=== PATIENT | male | born 1955 | race Caucasian/White ===

== ENCOUNTER 2019-04-19 19:07 | Emergency (ER) | payer SELFPAY ==
[~2019-04-19] VITALS: Ht 165.1 cm; Wt 76.2 kg
[~2019-04-19 19:07] MED LIST: ACET-1467 PO; BENA1TAB18 PO; CLOP75TA15 PO; LORA1TAB PO; PROP10TA10 PO
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
[2019-04-19] MEDS ORDERED: HYDROCODONE/APAP 5-325MG TABLET PO ONE (19:15)
[2019-04-19] MEDS ORDERED: HYDROCODONE/APAP 5-325MG TABLET ONE (19:24)
--- NOTE | 2019-04-19 19:37 | NUR ---
Patient discharged to home in stable conditon, DENIES PAIN. Written and verbal after care instructions given. AMBULATORY WITH STABLE GAIT. Patient verbalizes understanding of instructions.
[2019-04-19 19:42] VITALS: BP 140/90
== END 2019-04-19 19:30 | disposition home or self-care (01) ==
LOC: ER 19:07
DX: S00.03XA Contusion of scalp, initial encounter (principal); I10 Essential (primary) hypertension; E78.00 Pure hypercholesterolemia, unspecified; F41.9 Anxiety disorder, unspecified; Z79.01 Long term (current) use of anticoagulants; Z79.899 Other long term (current) drug therapy; Z86.73 Personal history of transient ischemic attack (TIA), and cerebral infarction without residual deficits; V43.52XA Car driver injured in collision with other type car in traffic accident, initial encounter; Y93.89 Activity, other specified; Y92.410 Unspecified street and highway as the place of occurrence of the external cause; Y99.8 Other external cause status
CPT/HCPCS: A4663

== ENCOUNTER 2019-07-08 19:40 | Inpatient (IN) | payer MEDICARE ==
[~2019-07-08] VITALS: Ht 170.2 cm; Wt 75.0 kg
[2019-07-08 20:09] LABS: BASOPHILS # (AUTO) 0.1 K/uL (0.0-8.0); EOSINOPHILS # (AUTO) 0.4 K/uL (0.0-0.7); HEMATOCRIT 45.6 % (36.7-47.1); HEMOGLOBIN 15.2 g/dL (12.5-16.3); LYMPHOCYTES # (AUTO) 3.1 K/uL (20.0-40.0); LYMPHOCYTES % (AUTO) 33.6 % (20.5-51.5); MEAN CORPUSCULAR HEMOGLOBIN 27.9 uug (23.8-33.4); MEAN CORPUSCULAR HGB CONC 33 g/dL (32.5-36.3); MEAN CORPUSCULAR VOLUME 83.7 fL (73.0-96.2); MONOCYTES # (AUTO) 0.6 K/uL (2.0-10.0); MONOCYTES % (AUTO) 6.1 % (0.0-11.0); NEUTROPHILS # (AUTO) 5.1 K/uL (1.8-8.9); NEUTROPHILS % (AUTO) 55.3 % (38.5-71.5); PLATELET COUNT (AUTO) 224 K/uL (152-348); RED BLOOD CELL COUNT(AUTO) 5.45 MIL/uL (4.06-5.63); WHITE BLOOD COUNT (AUTO) 9.2 K/uL (3.6-10.2)
[2019-07-08 20:47] LABS: ALANINE AMINOTRANSFERASE 29 U/L (16-63); ALKALINE PHOSPHATASE 62 U/L (50-136); ASPARTATE AMINOTRANSFERASE 13 U/L (15-37); BILIRUBIN,DIRECT < 0.1 mg/dL (0.0-0.2); BILIRUBIN,TOTAL 0.4 mg/dL (0.2-1.0); CARBON DIOXIDE 24 mmol/L (21-32); CHLORIDE 103 mmol/L (98-107); CHOLESTEROL 178 mg/dL (<200); CREATININE 0.9 mg/dL (0.6-1.3); GLUCOSE 109 mg/dL (74-106); HDL CHOLESTEROL 42 mg/dL (40-60); POTASSIUM 3.9 mmol/L (3.5-5.1); TOTAL PROTEIN, SERUM 7.9 g/dL (6.4-8.2); TRIGLYCERIDES 155 MG/DL (30-150); UREA NITROGEN, BLOOD 19 mg/dL (7-18)
[2019-07-08 21:27] LABS: *AMPHETAMINE, URINE NEGATIVE (NEGATIVE); *BARBITURATE, URINE NEGATIVE (NEGATIVE); *CANNABINOID, URINE NEGATIVE (NEGATIVE); *COCCAINE, URINE NEGATIVE (NEGATIVE); *OPIATE, URINE NEGATIVE (NEGATIVE); *PHENCYCLIDINE SCREEN,URINE NEGATIVE (NEGATIVE)
[2019-07-08] MEDS ORDERED: ALPRAZOLAM 0.5 MG TABLET ONE (22:25)
[2019-07-08] MEDS ORDERED: ALPRAZOLAM 0.25 MG TABLET PO ONE (22:30)
[2019-07-09] MEDS ORDERED: IV NS 1000 ML 1,000 ML IV PRN (00:21)
[2019-07-09] MEDS ORDERED: ACETAMINOPHEN 325 MG TABLET PO PRN (00:30)
[2019-07-09] MEDS ORDERED: MAG HYDROX/AL HYDROX/SIMETH 30 ML LIQUID UDC PO PRN (00:30)
[2019-07-09] MEDS ORDERED: hydrALAZINE HCL 20 MG/1 ML VIAL IV PRN (00:30)
[2019-07-09] MEDS ORDERED: ASPIRIN EC 81 MG TABLET.DR PO ONE ×2 (01:15→01:30)
[2019-07-09 01:20] VITALS: BP 141/84
[2019-07-09] MEDS ORDERED: SIMVASTATIN 40 MG TABLET PO ONE (01:30)
[2019-07-09 04:27] VITALS: BP 116/57
[2019-07-09 06:35] LABS: BASOPHILS % (AUTO) 0.6 % (0.0-2.0); EOSINOPHILS # (AUTO) 0.3 K/uL (0.0-0.7); HEMATOCRIT 40.9 % (36.7-47.1); HEMOGLOBIN 13.4 g/dL (12.5-16.3); LYMPHOCYTES # (AUTO) 2.6 K/uL (20.0-40.0); LYMPHOCYTES % (AUTO) 36.9 % (20.5-51.5); MEAN CORPUSCULAR HGB CONC 33 g/dL (32.5-36.3); MEAN CORPUSCULAR VOLUME 82.5 fL (73.0-96.2); MONOCYTES # (AUTO) 0.6 K/uL (2.0-10.0); MONOCYTES % (AUTO) 8.5 % (0.0-11.0); NEUTROPHILS # (AUTO) 3.6 K/uL (1.8-8.9); PLATELET COUNT (AUTO) 214 K/uL (152-348); RED BLOOD CELL COUNT(AUTO) 4.96 MIL/uL (4.06-5.63); WHITE BLOOD COUNT (AUTO) 7.1 K/uL (3.6-10.2)
[2019-07-09 06:36] LABS: CREATININE 0.8 mg/dL (0.6-1.3); POTASSIUM 3.5 mmol/L (3.5-5.1)
[2019-07-09 06:41] LABS: BILIRUBIN,TOTAL 0.4 mg/dL (0.2-1.0); TOTAL PROTEIN, SERUM 6.5 g/dL (6.4-8.2)
[2019-07-09] MEDS ORDERED: PANTOPRAZOLE SODIUM 40 MG TABLET.DR PO SCH (07:00)
[2019-07-09 07:44] LABS: THYROID STIMULATING HORMONE 4.027 mIU/mL (0.358-3.740)
[2019-07-09] MEDS: PROPRANOLOL HCL 10 MG TABLET PO SCH ×3 (08:21→17:11)
[2019-07-09] MEDS ORDERED: LORAZEPAM 1 MG TABLET PO SCH (09:00)
[2019-07-09] MEDS ORDERED: CLOPIDOGREL 75 MG TABLET PO SCH (09:00)
[2019-07-09] MEDS ORDERED: ASPIRIN EC 81 MG TABLET.DR PO SCH ×2 (09:00)
[2019-07-09] MEDS ORDERED: BENAZEPRIL HCL 20 MG TABLET PO SCH (10:12)
[2019-07-09] MEDS ORDERED: HYDROCHLOROTHIAZIDE 25 MG TABLET PO SCH (10:12)
[2019-07-09 11:30] VITALS: BP 129/69
[2019-07-09 13:07] LABS: *BILIRUBIN,URIN NEGATIVE (NEGATIVE); *BLOOD, URINE NEGATIVE (NEGATIVE); *COLOR,URINE YELLOW (YELLOW); *KETONES,URINE NEGATIVE (NEGATIVE); *UROBILINOGEN,URINE 0.2 E.U./dl (NORMAL); LEUKOCYTE ESTERASE ,URINE NEGATIVE (NEGATIVE); NITRITE, URINE NEGATIVE (NEGATIVE); UGLUCOSE NEGATIVE (NEGATIVE)
[2019-07-09 13:12] LABS: *CLARITY,URINE CLEAR (CLEAR)
[2019-07-09] MEDS ORDERED: ALPR1TAB7 PO (13:29)
[2019-07-09] MEDS ORDERED: AMLO5TAB4 PO (13:30)
[2019-07-09] MEDS ORDERED: METH500T6 PO (13:30)
[2019-07-09] MEDS ORDERED: ATOR20TA PO (13:31)
[2019-07-09] MEDS ORDERED: PROP20TA7 PO (13:31)
[2019-07-09 16:00] VITALS: BP 141/81
[2019-07-09 17:11] VITALS: BP 144/77
[2019-07-09] MEDS ORDERED: BENA20TA9 PO (17:23)
[2019-07-09] MEDS ORDERED: ATOR40TA PO (17:23)
[2019-07-09] MEDS ORDERED: LORAZEPAM 1 MG TABLET PO PRN (21:00)
[2019-07-09] MEDS ORDERED: SIMVASTATIN 40 MG TABLET PO SCH ×2 (21:00)
== END 2019-07-09 17:55 | disposition home or self-care (01) | DRG 69 ==
LOC: ER 19:41 → TELE3 23:55
PROVIDERS: ADMIT Nurse Practitioner Acute Care; ATTEND Internal Medicine
DX: G45.9 Transient cerebral ischemic attack, unspecified (principal); G25.0 Essential tremor; I67.82 Cerebral ischemia; Z86.73 Personal history of transient ischemic attack (TIA), and cerebral infarction without residual deficits; J44.9 Chronic obstructive pulmonary disease, unspecified; F17.210 Nicotine dependence, cigarettes, uncomplicated; H65.91 Unspecified nonsuppurative otitis media, right ear; Z79.02 Long term (current) use of antithrombotics/antiplatelets; I10 Essential (primary) hypertension; E86.0 Dehydration; E78.5 Hyperlipidemia, unspecified; F32.9 Major depressive disorder, single episode, unspecified; F41.9 Anxiety disorder, unspecified; I73.89 Other specified peripheral vascular diseases; R40.2252 Coma scale, best verbal response, oriented, at arrival to emergency department; R40.2362 Coma scale, best motor response, obeys commands, at arrival to emergency department; R40.2142 Coma scale, eyes open, spontaneous, at arrival to emergency department
CPT/HCPCS: 36415; 70030-TC; 70450; 71045; 80307; 83735; 84443; 85025; 85651; 85730; 93005; A4663; G0378; J7030

== ENCOUNTER 2021-01-30 17:37 | Emergency (ER) | payer MEDICARE, OTHER ==
[~2021-01-30] VITALS: Ht 170.2 cm; Wt 75.7 kg
[~2021-01-30 17:37] MED LIST changes: -ACET-1467 PO; +ALPR1TAB7 PO; +AMLO5TAB4 PO; +ATOR20TA PO; +ATOR40TA PO; -BENA1TAB18 PO; +BENA20TA9 PO; -CLOP75TA15 PO; -LORA1TAB PO; +METH-806 PO; -PROP10TA10 PO; +PROP20TA7 PO
[2021-01-30] MEDS ORDERED: ALPRAZOLAM 0.25 MG TABLET PO ONE (19:30)
[2021-01-30 19:50] LABS: BASOPHILS # (AUTO) 0.1 K/uL (0.0-8.0); BASOPHILS % (AUTO) 0.5 % (0.0-2.0); EOSINOPHILS # (AUTO) 0.2 K/uL (0.0-0.7); EOSINOPHILS % (AUTO) 1.8 % (0.0-7.0); HEMATOCRIT 35.1 % (36.7-47.1); HEMOGLOBIN 10.6 g/dL (12.5-16.3); LYMPHOCYTES # (AUTO) 1.7 K/uL (20.0-40.0); LYMPHOCYTES % (AUTO) 14.4 % (20.5-51.5); MEAN CORPUSCULAR HEMOGLOBIN 20.1 uug (23.8-33.4); MEAN CORPUSCULAR HGB CONC 30 g/dL (32.5-36.3); MEAN CORPUSCULAR VOLUME 66.9 fL (73.0-96.2); MONOCYTES # (AUTO) 0.8 K/uL (2.0-10.0); NEUTROPHILS # (AUTO) 9.1 K/uL (1.8-8.9); NEUTROPHILS % (AUTO) 76.3 % (38.5-71.5); PLATELET COUNT (AUTO) 293 K/uL (152-348); RED BLOOD CELL COUNT(AUTO) 5.25 MIL/uL (4.06-5.63); WHITE BLOOD COUNT (AUTO) 11.9 K/uL (3.6-10.2)
[2021-01-30 19:53] LABS: CREATININE 0.8 mg/dL (0.6-1.3); POTASSIUM 4.1 mmol/L (3.5-5.1)
[2021-01-30 20:05] LABS: BILIRUBIN,DIRECT 0.1 mg/dL (0.0-0.2); BILIRUBIN,TOTAL 0.4 mg/dL (0.2-1.0); TOTAL PROTEIN, SERUM 7.8 g/dL (6.4-8.2)
[2021-01-30] MEDS ORDERED: ALPRAZOLAM 0.5 MG TABLET ONE (20:06)
--- NOTE | 2021-01-30 20:06 | NUR ---
Patient refused to monitor on at this point. Explained to patient purpose and action of monitor.
[2021-01-30] MEDS ORDERED: ALPR1TAB7 PO (20:10)
--- NOTE | 2021-01-30 20:22 | NUR ---
Patient does not wish to proceed with medical care recommended by Dr. Broderick. Patient A/Ox4. Patient given information related to possible complications, up to and including , which could occur as a result of leaving the hospital at this time. Patient verbalizes understanding of risks involved due to leaving against medical advice. Patient discharged to home in stable condition. Written and verbal after care instructions given. Patient verbalizes understanding of instructions. Stressed follow up or return to ER for worsening s/s. Patient has signed AMA form. Patient ambulated with steady gait.
[2021-01-30 20:23] VITALS: BP 155/79
--- NOTE | 2021-01-30 20:23 | NUR ---
Patient has friend at bedside who will be taking him home tonight.
== END 2021-01-30 20:23 | disposition left against medical advice (07) ==
LOC: ER 17:37
DX: R06.02 Shortness of breath (principal); D64.9 Anemia, unspecified; D72.829 Elevated white blood cell count, unspecified; F41.9 Anxiety disorder, unspecified; Z86.73 Personal history of transient ischemic attack (TIA), and cerebral infarction without residual deficits; J44.9 Chronic obstructive pulmonary disease, unspecified; E78.00 Pure hypercholesterolemia, unspecified; I10 Essential (primary) hypertension; R94.31 Abnormal electrocardiogram [ECG] [EKG]
CPT/HCPCS: 36415; 70030-TC; 71045; 85025; 85730; 93005; A4663